=== PATIENT | female | born 1955 | race Caucasian/White ===

== ENCOUNTER 2021-09-17 19:24 | Emergency (ER) | payer OTHER, MEDICAID ==
[~2021-09-17] VITALS: Ht 157.5 cm; Wt 154.2 kg
[2021-09-17 19:32] VITALS: BP_SYST 162
--- NOTE | 2021-09-17 19:40 | NUR ---
Patient to ER bed matta to gon for evaluation. Side rails up. Report given to Soham HERNANDEZ(reg).
[2021-09-17] MEDS ORDERED: ACETAMINOPHEN 325 MG TABLET PO ONE (20:30)
[2021-09-17] MEDS ORDERED: CYCLOBENZAPRINE HCL 10 MG TABLET (FLEXERIL) PO ONE (20:30)
--- NOTE | 2021-09-17 20:59 | NUR ---
Pt C/O left sided neck and right shoulder pain AOX4 VSS Verbally responsive Able to make needs known Will continue to monitor
[2021-09-17 21:08] LABS: BASOPHILS % (AUTO) 0.4 % (0.0-2.0); EOSINOPHILS # (AUTO) 0.3 K/uL (0.0-0.4); EOSINOPHILS % (AUTO) 3.4 % (0.0-4.0); HEMOGLOBIN 13.3 g/dL (12.0-16.0); LYMPHOCYTES # (AUTO) 1.2 K/uL (1.0-5.5); LYMPHOCYTES % (AUTO) 13.4 % (20.5-51.5); MEAN CORPUSCULAR HEMOGLOBIN 28 pg (27-31); MEAN CORPUSCULAR HGB CONC 32 % (32-36); MEAN CORPUSCULAR VOLUME 87 fL (79.0-98.0); MONOCYTES # (AUTO) 0.5 K/uL (0.0-1.0); MONOCYTES % (AUTO) 5.1 % (1.7-9.3); NEUTROPHILS # (AUTO) 7.1 K/uL (1.8-7.7); NEUTROPHILS % (AUTO) 77.7 % (40.0-70.0); PLATELET COUNT (AUTO) 427 K/uL (130-430); RED BLOOD CELL COUNT(AUTO) 4.73 MIL/uL (4.2-6.2); RED CELL DISTRIBUTION WIDTH 14.1 % (9.0-15.0); WHITE BLOOD COUNT (AUTO) 9.2 K/uL (4.8-10.8)
[2021-09-17 21:25] LABS: CALCIUM 9.2 mg/dL (8.4-11.0); CREATININE 0.69 mg/dL (0.55-1.30)
[2021-09-17 21:43] LABS: ALBUMIN 2.8 g/dL (3.4-4.8)
[2021-09-17] MEDS ORDERED: GABA-529 PO (21:45)
[2021-09-17] MEDS ORDERED: LIDO700A30 TP (21:45)
[2021-09-17] MEDS ORDERED: ACET-2634 PO (21:45)
--- NOTE | 2021-09-17 21:47 | NUR ---
Received critical lab value from [facility] from lab Potassium @2.9 made aware
[2021-09-17 21:48] LABS: POTASSIUM 2.9 mmol/L (3.5-5.1)
[2021-09-17 22:02] LABS: TOTAL BILIRUBIN 0.2 mg/dL (0.0-1.0)
[2021-09-17] MEDS ORDERED: POTA-197 PO (22:27)
--- NOTE | 2021-09-17 22:52 | NUR ---
Patient given written and verbal discharge instructions and verbalizes understanding. ER MD discussed with patient the results and treatment provided. Patient in stable condition. ID arm band removed. Patient educated on pain management and to follow up with PMD. Pain Scale 0. Opportunity for questions provided and answered. Medication side effect fact sheet provided. pt exited ED in stable gait
== END 2021-09-17 22:52 | disposition home or self-care (01) ==
LOC: SED 19:24
DX: R51.9 Headache, unspecified (principal); I10 Essential (primary) hypertension; E11.9 Type 2 diabetes mellitus without complications; Z79.84 Long term (current) use of oral hypoglycemic drugs; Z79.899 Other long term (current) drug therapy
CPT/HCPCS: 36415; 70450-TC; 76376; 80053; 85025; 93005; 99285